=== PATIENT | male | born 2000 | race Caucasian/White ===

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

== ENCOUNTER 2021-11-29 12:28 | Inpatient (IN) | payer BC ==
[2021-11-29] MEDS ORDERED: DEXAMETHASONE SOD PHOSPHATE 10 MG/ML 1 ML VIAL IM STA (12:58)
[2021-11-29] MEDS ORDERED: IPRATROPIUM-ALBUTEROL 3 ML NEB INHALATION STA ×2 (12:58→15:32)
--- NOTE | 2021-11-29 13:01 | ED ---
General Adult HPI - General Chief complaint: Upper Respiratory Infection Stated complaint: cough, SOB Time Seen by Provider: 11/29/21 12:52 Source: patient, family (mom), RN notes reviewed, old records reviewed Mode of arrival: ambulatory Limitations: no limitations - History of Present Illness Initial comments: Patient presents with 2 months of chronic cough and wheezing. Denies any fevers, no chest pain, no nausea vomiting or diarrhea. States that he does smoke marijuana and vape daily. He denies any medical history. Mom states that he did have asthma as a child. -: month(s) (2) Severity scale (1-10): 0 Associated Symptoms: cough Treatments Prior to Arrival: none - Related Data Home Medications Medication Instructions Recorded Confirmed No Known Home Medications 07/08/20 11/29/21 Allergies Allergy/AdvReac Type Severity Reaction Status Date / Time No Known Allergies Allergy Verified 11/29/21 14:18 Review of Systems ROS Statement: Those systems with pertinent positive or pertinent negative responses have been documented in the HPI. ROS Other: All systems not noted in ROS Statement are negative. Past Medical History Past Medical History: No Reported History History of Any Multi-Drug Resistant Organisms: None Reported Past Surgical History: No Surgical Hx Reported Past Psychological History: Anxiety, Depression Smoking Status: Never smoker Past Alcohol Use History: None Reported Past Drug Use History: None Reported General Exam Limitations: no limitations General appearance: alert, in no apparent distress Head exam: Present: atraumatic, normocephalic, normal inspection Eye exam: Present: normal appearance. Absent: scleral icterus, conjunctival injection, periorbital swelling, periorbital tenderness ENT exam: Present: mucous membranes moist Neck exam: Present: normal inspection, full ROM. Absent: tenderness, meningismus, lymphadenopathy, thyromegaly Respiratory exam: Present: wheezes. Absent: respiratory distress, rales, rhonchi, stridor, chest wall tenderness, accessory muscle use, decreased breath sounds Cardiovascular Exam: Present: tachycardia Extremities exam: Present: normal capillary refill. Absent: tenderness, pedal edema, calf tenderness Neurological exam: Present: alert, oriented X3 Psychiatric exam: Present: normal affect, normal mood Skin exam: Present: warm, dry, normal color. Absent: cyanosis, diaphoretic, erythema, petechiae, pallor Course Vital Signs 11/29/21 11/29/21 11/29/21 12:40 13:07 13:11 Temperature 99.1 F Pulse Rate 125 H 110 H 113 H Respiratory 20 20 Rate Blood Pressure 167/89 O2 Sat by Pulse 93 L 93 L Oximetry 11/29/21 11/29/21 11/29/21 13:22 14:03 14:12 Temperature Pulse Rate 105 H 103 H 98 Respiratory 20 Rate Blood Pressure 140/89 O2 Sat by Pulse 93 L Oximetry 11/29/21 11/29/21 11/29/21 14:23 15:38 15:44 Temperature Pulse Rate 101 H 105 H 100 Respiratory 20 Rate Blood Pressure 141/93 O2 Sat by Pulse 92 L Oximetry 11/29/21 11/29/21 11/29/21 16:06 17:15 17:18 Temperature Pulse Rate 114 H 110 H Respiratory 20 Rate Blood Pressure 143/84 O2 Sat by Pulse 93 L 95 Oximetry - Reevaluation(s) Reevaluation #1: 11/29/21 16:14 Patient continues to have inspiratory and expiratory wheezes bilaterally satting 91-92% on room air after multiple treatments, magnesium and steroids. Case discussed with Dr. Huang, patient will be admitted Time: 16:14 EKG Findings - EKG Results: EKG: sinus rhythm EKG shows: tachycardia (Ventricular rate 101, WI interval 0.159, QRS 0.89, QTC 0.386) Medical Decision Making - Medical Decision Making Patient presents with increasing dyspnea over the past 2 months. Denies any fevers. No recent sick contacts. States that he does vape and smoke marijuana daily. Patient was given multiple breathing treatments, steroids and magnesium and remains hypoxic at 90-91% on room air, with inspiratory and expiratory wheezes. Coronavirus swab is negative. Chest x-ray shows no acute cardiopulmonary disease. Case was discussed with Dr. Huang, he will be admitted to the hospital with refractory bronchospasm and hypoxia. Consult to pulmonology. - Lab Data Result diagrams: 11/29/21 13:59 11/29/21 13:59 Lab Results 11/29/21 11/29/21 11/29/21 Range/Units 13:59 13:59 13:59 WBC 10.0 (4.0-11.0) k/uL RBC 5.72 (4.30-5.90) m/uL Hgb 17.1 (13.0-17.5) gm/dL Hct 50.0 (39.0-53.0) % MCV 87.3 (80.0-100.0) fL MCH 29.9 (25.0-35.0) pg MCHC 34.3 (31.0-37.0) g/dL RDW 13.0 (11.5-15.5) % Plt Count 299 (150-450) k/uL MPV 6.6 Neutrophils % 60 % Lymphocytes % 22 % Monocytes % 5 % Eosinophils % 10 % Basophils % 2 % Neutrophils # 6.0 (1.3-7.7) k/uL Lymphocytes # 2.2 (1.0-4.8) k/uL Monocytes # 0.5 (0-1.0) k/uL Eosinophils # 1.0 H (0-0.7) k/uL Basophils # 0.2 (0-0.2) k/uL D-Dimer 0.26 (<0.60) mg/L FEU Sodium 140 (137-145) mmol/L Potassium 3.7 (3.5-5.1) mmol/L Chloride 102 (98-107) mmol/L Carbon Dioxide 24 (22-30) mmol/L Anion Gap 14 mmol/L BUN 16 (9-20) mg/dL Creatinine 0.79 (0.66-1.25) mg/dL Est GFR (CKD-EPI)AfAm >90 (>60 ml/min/1.73 sqM) Est GFR (CKD-EPI)NonAf >90 (>60 ml/min/1.73 sqM) Glucose 75 (74-99) mg/dL Calcium 8.9 (8.4-10.2) mg/dL Magnesium 1.6 (1.6-2.3) mg/dL Total Bilirubin 0.5 (0.2-1.3) mg/dL AST 28 (17-59) U/L ALT 22 (4-49) U/L Alkaline Phosphatase 92 (38-126) U/L Total Protein 7.6 (6.3-8.2) g/dL Albumin 4.6 (3.5-5.0) g/dL Coronavirus (PCR) (Not Detectd) 11/29/21 Range/Units 16:31 WBC (4.0-11.0) k/uL RBC (4.30-5.90) m/uL Hgb (13.0-17.5) gm/dL Hct (39.0-53.0) % MCV (80.0-100.0) fL MCH (25.0-35.0) pg MCHC (31.0-37.0) g/dL RDW (11.5-15.5) % Plt Count (150-450) k/uL MPV Neutrophils % % Lymphocytes % % Monocytes % % Eosinophils % % Basophils % % Neutrophils # (1.3-7.7) k/uL Lymphocytes # (1.0-4.8) k/uL Monocytes # (0-1.0) k/uL Eosinophils # (0-0.7) k/uL Basophils # (0-0.2) k/uL D-Dimer (<0.60) mg/L FEU Sodium (137-145) mmol/L Potassium (3.5-5.1) mmol/L Chloride (98-107) mmol/L Carbon Dioxide (22-30) mmol/L Anion Gap mmol/L BUN (9-20) mg/dL Creatinine (0.66-1.25) mg/dL Est GFR (CKD-EPI)AfAm (>60 ml/min/1.73 sqM) Est GFR (CKD-EPI)NonAf (>60 ml/min/1.73 sqM) Glucose (74-99) mg/dL Calcium (8.4-10.2) mg/dL Magnesium (1.6-2.3) mg/dL Total Bilirubin (0.2-1.3) mg/dL AST (17-59) U/L ALT (4-49) U/L Alkaline Phosphatase (38-126) U/L Total Protein (6.3-8.2) g/dL Albumin (3.5-5.0) g/dL Coronavirus (PCR) Not Detected (Not Detectd) Disposition Clinical Impression: Hypoxia, Acute bronchospasm Disposition: ADMITTED IP TO THIS [facility] Time of Disposition: 16:16
[2021-11-29] MEDS ORDERED: ALBUTEROL NEBULIZED 2.5 MG/3 ML INHALATION STA ×2 (13:39→15:26)
[2021-11-29] MEDS ORDERED: MAGNESIUM SULFATE-D5W PMX 1 GM in DEXTROSE/WATER 1 100ML.BAG IVPB STA (13:40)
[2021-11-29] MEDS ORDERED: SODIUM CHLORIDE 0.9% 1,000 ML IV STA (13:40)
[2021-11-29 14:10] LABS: Basophils # (A) 0.2 k/uL (0-0.2); Basophils % (A) 2 %; Eosinophils % (A) 10 %; HGB 17.1 gm/dL (13.0-17.5); Lymphocytes # (A) 2.2 k/uL (1.0-4.8); Lymphocytes % (A) 22 %; MCH 29.9 pg (25.0-35.0); MCHC 34.3 g/dL (31.0-37.0); MCV 87.3 fL (80.0-100.0); Mean Platelet Volume 6.6; Monocytes # (A) 0.5 k/uL (0-1.0); Monocytes % (A) 5 %; Neutrophils % (A) 60 %; Platelet Count 299 k/uL (150-450); RBC 5.72 m/uL (4.30-5.90)
[2021-11-29 14:18] LABS: ALT 22 U/L (4-49); AST 28 U/L (17-59); African American GFR (CKD) >90 (>60 ml/min/1.73 sqM); Albumin 4.6 g/dL (3.5-5.0); Alkaline Phosphatase 92 U/L (38-126); Anion Gap 14 mmol/L; Blood Urea Nitrogen 16 mg/dL (9-20); Calcium 8.9 mg/dL (8.4-10.2); Carbon Dioxide 24 mmol/L (22-30); Chloride 102 mmol/L (98-107); Glucose 75 mg/dL (74-99); Magnesium 1.6 mg/dL (1.6-2.3); Non-African American GFR(CKD) >90 (>60 ml/min/1.73 sqM); Potassium 3.7 mmol/L (3.5-5.1); Sodium 140 mmol/L (137-145); Total Bilirubin 0.5 mg/dL (0.2-1.3); Total Protein 7.6 g/dL (6.3-8.2)
--- NOTE | 2021-11-29 14:46 | XR ---
EXAMINATION TYPE: XR chest 2V DATE OF EXAM: 11/29/2021 COMPARISON: NONE HISTORY: Cough and difficulty breathing TECHNIQUE: Frontal and lateral views of the chest are obtained. FINDINGS: There is no focal air space opacity, pleural effusion, or pneumothorax seen. The cardiac silhouette size is within normal limits. The osseous structures are intact. IMPRESSION: No acute cardiopulmonary process.
[2021-11-29] MEDS ORDERED: ALBUTEROL NEBULIZED 2.5 MG/3 ML INHALATION PRN (16:29)
[2021-11-29] MEDS ORDERED: NALOXONE 0.4 MG/ML 1 ML VIAL IV PRN (16:31)
[2021-11-29] MEDS ORDERED: IBUPROFEN 400 MG TAB PO PRN (16:31)
[2021-11-29] MEDS ORDERED: ACETAMINOPHEN TAB 325 MG TAB PO PRN (16:31)
--- NOTE | 2021-11-29 17:18 | P.HPIM ---
History of Present Illness H&P Date: 11/29/21 Patient is a 21-year-old male with PMH of childhood asthma presents the ED for shortness of breath and wheezing. Patient reports symptoms ongoing for the past 6 months. Initially, his complaints was a dry cough. Patient reports 2 months ago he was at work and inhaled some chemicals while cleaning. Since then, he has been experiencing cough productive of clear sputum along with wheezing. Today, he reported shortness of breath worsen usual. His O2 saturation is 91% at home. He does state nicotine and smoke marijuana. This prompted him to come to the ED. He denies any headache, lower extremity edema, nausea or vomiting, fever or chills, chest pain, palpitations, changes in urination or bowel habits. No changes in appetite or weight. He denies any dizziness, numbness/weakness as tingling of extremities. In the ED, he was noted to have an O2 saturation of 92% on room air while being tachycardic in the 110s. Vital signs were otherwise stable. CBC was unremarkable. D-dimer was negative. CMP was negative. Chest x-ray was negative. Patient is admitted for asthma exacerbation. Review of systems has been performed and is negative except above. General: [non toxic], [no distress], [appears at stated age] Derm: [warm], [dry] Head: [atraumatic], [normocephalic], [symmetric] Eyes: [EOMI], [no lid lag], [anicteric sclera] Mouth: [no lip lesion], [mucus membranes moist] Cardiovascular: [Tachycardic], [no murmur], [positive posterior tibial pulse bilateral], Lungs: [Expiratory wheezing bilateral], [no rhonchi, no rales] , [no accessory muscle use] Abdominal: [soft], [ nontender to palpation], [no guarding], [no appreciable organomegaly] Ext: [no gross muscle atrophy], [no edema], [no contractures] Neuro: [ CN II-XI grossly intact], [no focal neuro deficits] Psych: [Alert], [oriented], [appropriate affect] #Acute asthma exacerbation #History of a vaping #Marijuana use #Obesity Patient was started on DuoNeb scheduled and as needed for shortness of breath and wheezing. He will be started on Solu-Medrol. He'll be given supplemental O2 to maintain O2 saturation greater than 92%. He'll be placed on telemetry monitoring. Pulmonology will be consulted for further management of this patient. Patient has been encourage to quit vaping and smoking marijuana. Patient would benefit from a structured weight loss program. DVT prophylaxis: [SCDs] Discussed with: [Patient, ED physician, mother] Anticipated discharge: [1-2 days] Anticipated discharge place: [Home] A total of [30] minutes was spent on the care of this complex patient more than 50% of the time was spent in counseling and care coordination. Patient names his mother decision maker if he can't make decisions for himself. Patient would like to be full code. Past Medical History Past Medical History: No Reported History History of Any Multi-Drug Resistant Organisms: None Reported Past Surgical History: No Surgical Hx Reported Past Psychological History: Anxiety, Depression Smoking Status: Never smoker Past Alcohol Use History: None Reported Past Drug Use History: None Reported Medications and Allergies Home Medications Medication Instructions Recorded Confirmed Type No Known Home Medications 07/08/20 11/29/21 History Allergies Allergy/AdvReac Type Severity Reaction Status Date / Time No Known Allergies Allergy Verified 11/29/21 14:18 Physical Exam Vitals: Vital Signs Temp Pulse Resp BP Pulse Ox 11/29/21 17:15 110 H 20 143/84 93 L 11/29/21 16:06 114 H 11/29/21 15:44 100 11/29/21 15:38 105 H 20 141/93 92 L 11/29/21 14:23 101 H 11/29/21 14:12 98 11/29/21 14:03 103 H 20 140/89 93 L 11/29/21 13:22 105 H 11/29/21 13:11 113 H 11/29/21 13:07 110 H 20 93 L 11/29/21 12:40 99.1 F 125 H 20 167/89 93 L Intake and Output 11/29/21 11/29/21 11/29/21 06:59 14:59 22:59 Other: Weight 108.862 kg Results CBC & Chem 7: 11/29/21 13:59 11/29/21 13:59 Labs: Abnormal Lab Results - Last 24 Hours (Table) 11/29/21 Range/Units 13:59 Eosinophils # 1.0 H (0-0.7) k/uL
[2021-11-29] MEDS: methylPREDNISolone SOD SUCCI 125 MG/2 ML VIAL IV SCH (18:10)
[2021-11-29] MEDS: SODIUM CHLORIDE 0.9% 1,000 ML IV SCH (18:11)
[2021-11-29] MEDS: IPRATROPIUM-ALBUTEROL 3 ML NEB INHALATION SCH (21:29)
[2021-11-30] MEDS: IPRATROPIUM-ALBUTEROL 3 ML NEB INHALATION SCH ×7 (00:30→23:35)
[2021-11-30] MEDS: methylPREDNISolone SOD SUCCI 125 MG/2 ML VIAL IV SCH ×4 (01:36→16:51)
--- NOTE | 2021-11-30 10:01 | P.PN ---
Subjective Progress Note Date: 11/30/21 Hospital course: Patient is a 21-year-old male with PMH of childhood asthma presents the ED for shortness of breath and wheezing. Patient reports symptoms ongoing for the past 6 months. Initially, his complaints consisted of a dry cough. Patient reports 2 months ago he was at work and inhaled some chemicals while cleaning. Since then, he has been experiencing cough productive of clear sputum along with wheezing. Today, he reported shortness of breath worsen usual. His O2 satu ration is 91% at home. He does state nicotine and smoke marijuana. This prompted him to come to the ED. He denies any headache, lower extremity edema, nausea or vomiting, fever or chills, chest pain, palpitations, changes in urination or bowel habits. No changes in appetite or weight. He denies any dizziness, numbness/weakness as tingling of extremities. In the ED, pt was noted to have an O2 saturation of 92% on room air while being tachycardic in the 110s. Vital signs were otherwise stable. CBC was unremarkable. D-dimer was negative. CMP was negative. Chest x-ray was negative. Patient was admitted under our services for asthma exacerbation with consultation to pulmonology. Physical exam: Patient seen and fully evaluated at bedside this morning. At rest patient appears to be doing better, but continues to have significant bronchospasms with expiratory wheezes throughout all lung khan. He is currently 90-91% on 2 L O2 via nasal cannula. Had long discussion with patient about Vaping and that he needs to stop all use including marijuana and nicotine. Patient verbalized understanding. Will arrange for home nebulizer. Vital signs reviewed and stable. General: Nontoxic, no distress and appears stated age. Derm: Skin warm and dry, normal coloration for ethnicity. Head: Atraumatic, normocephalic and symmetric. Eyes: EOMs intact, no lid lag, and anicteric sclera Mouth: no lip lesions, mucus membranes moist Cardiovascular: regular rate and rhythm with normal S1S2, no murmur, positive posterior tibial pulses bilaterally, and cap refill < 2 seconds. Lungs: Respirations even, regular, and unlabored on 2L O2 via NC. Lungs tight with expiratory wheezes in all khan. No rhonchi or rales. Abdominal: soft, nontender to palpation, no guarding, no appreciable organomegaly Ext: ROM intact. No gross muscle atrophy, no edema, no contractures Neuro: Speech clear, face symmetrical and CN II-XII grossly intact with no noted focal neuro deficits Psych: Alert and oriented to person, place, time, and situation. Appropriate and pleasant affect. Assessment and Plan of Care: Acute asthma exacerbation Vaping usage Marijuana usage -Consult to Pulmonology -Oxygenation to be administered and titrated as needed to maintain SPO2 equal to or greater than 92% -Telemetry monitoring. -Monitor Pulse-oximetry -Duonebs scheduled and as needed for SOB and/or wheezing -Incentive Spirometry -Steroids: Solu-Medrol -Patient has been educated on the importance to quit vaping and smoking marijuana. CODE STATUS: Full Code DVT prophylaxis: Encourage ambulation Discussed with: Patient, RN and patient's father at bedside Anticipated discharge date: likely tomorrow Anticipated discharge place: Home A total of 37 minutes was spent on the care of this complex patient more than 50% of the time was spent in counseling and care coordination. Objective - Vital Signs Vital signs: Vital Signs Temp 97.8 F 11/30/21 08:00 Pulse 110 H 11/30/21 08:42 Resp 17 11/30/21 08:00 BP 138/85 11/30/21 08:00 Pulse Ox 91 L 11/30/21 08:29 FiO2 Intake & Output 11/29/21 11/30/21 11/30/21 18:59 06:59 18:59 Intake Total 1225 Balance 1225 Weight 108.862 kg 108.862 kg Intake: Intake, IV Titration 825 Amount Sodium Chloride 0.9% 1, 825 000 ml @ 75 mls/hr IV . [id number] ANDREINA Rx#:[id number] Oral 400 Other: Voiding Method Toilet # Voids 2 - Labs CBC & Chem 7: 11/29/21 13:59 11/29/21 13:59 Labs: Abnormal Lab Results - Last 24 Hours (Table) 11/29/21 Range/Units 13:59 Eosinophils # 1.0 H (0-0.7) k/uL
[2021-11-30] MEDS: SODIUM CHLORIDE 0.9% 1,000 ML IV SCH ×2 (12:10→20:07)
--- NOTE | 2021-11-30 13:13 | CT ---
EXAMINATION TYPE: CT angio chest CT DLP: 556.6 mGycm, Automated exposure control for dose reduction was used. DATE OF EXAM: 11/30/2021 12:07 PM COMPARISON: Chest radiograph 11/29/2021. CLINICAL INDICATION:Male, 21 years old with history of hypoxia; TECHNIQUE/CONTRAST: CTA scan of the thorax is performed with IV Contrast, patient injected with 80cc mL of Isovue 370, pu lmonary embolism protocol. Repeat exam with 100 cc of Isovue-370 administered due to poor contrast jace mell timing. MIP images are created and reviewed. FINDINGS: Pulmonary Artery: There is no evidence for a filling defect within the pulmonary vasculature to sugge st acute pulmonary embolism. The pulmonary artery is of normal size. Lungs/Pleura: No pneumothorax or pleural effusion. Patchy groundglass opacities within the right uppe r lobe, left upper lobe, and superior segment of the right lower lobe. Airway: Large airways are patent. Heart: Heart is within normal limits for size. No pericardial effusion. Vasculature: No evidence of aortic aneurysm. Mediastinum: No gross evidence of adenopathy. Musculoskeletal: No acute osseous abnormalities Soft Tissues: Mild bilateral gynecomastia. No axillary adenopathy. Lower neck: No significant findings. Upper Abdomen: No significant findings. IMPRESSION: 1. No evidence of pulmonary embolism. 2. Patchy groundglass opacities within the right upper lobe, left upper lobe and right lower lobe sug gestive of atypical pulmonary infection.
[2021-11-30 14:31] VITALS: BMI 34.4
--- NOTE | 2021-11-30 14:31 | P.CNPUL ---
History of Present Illness Consult date: 11/30/21 Reason for consult: dyspnea History of present illness: 21-year-old male patient, history of mild intermittent bronchial asthma, not using any form of maintenance his for medications and inhalers, coming into the hospital because of worsening shortness of breath chest that is so wheezing typically of an acute asthma exacerbation. The patient reports that approximately a month ago, was exposed to cleaning material/bleach while doing some cleaning work in the kitchen. 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 Following that, his breathing was not adequate and progressively his condition got worse. Note that he is a daily marijuana smoker and the patient also states. The patient presented emergency department having in creased chest tightness and wheezing and the patient was also hypoxic. His pulse ox was as low as 90-91% at home. No pleurisy. No hemoptysis. No previous history of DVT or pulmonary embolism. No recurrent pneumonias. No recurrent bronchitis. No use of systemic steroids on outpatient basis. The patient has been vaccinated for COVID 19 and the colon 19 testing came back negative by PCR. He has a strong family history for asthma including his mother and other sibling. The patient is currently on albuterol nebulized treatments of DuoNeb nebulized treatments around the clock and the patient is also on IV Solu-Medrol. Chest x-ray showed no acute abnormalities. CBC was remarkable and the patient had a low d-dimer. No history of any environmental ALLERGIES. No history of heartburn. No nasal polyposis. No aspirin sensitivity. Review of Systems Constitutional: Denies chills, Denies fever Eyes: denies as per HPI, denies blurred vision, denies bulging eye, denies decreased vision, denies diplopia, denies discharge, denies dry eye, denies irritation, denies itching, denies pain, denies photophobia, denies loss of p eripheral vision, denies loss of vision, denies tunnel vision/blind spots Ears: deny: decreased hearing, ear discharge, earache, tinnitus Ears, nose, mouth and throat: Reports as per HPI Breasts: absent: as per HPI, gynecomastia Cardiovascular: Reports dyspnea on exertion Respiratory: Reports cough, Reports dyspnea, Reports wheezing Gastrointestinal: Reports as per HPI Genitourinary: Reports as per HPI Musculoskeletal: Reports as per HPI Musculoskeletal: absent: ankle pain, ankle stiffness, ankle swelling Integumentary: Reports as per HPI Neurological: Reports as per HPI Psychiatric: Reports as per HPI Endocrine: Reports as per HPI Hematologic/Lymphatic: Reports as per HPI Allergic/Immunologic: Reports as per HPI Past Medical History Past Medical History: No Reported History Additional Past Medical History / Comment(s): asthma as kid History of Any Multi-Drug Resistant Organisms: None Reported Past Surgical History: No Surgical Hx Reported Past Psychological History: Anxiety, Depression Smoking Status: Current every day smoker Past Alcohol Use History: None Reported Past Drug Use History: None Reported Additional Drug Use History / Comment(s): Pt. reports vaping and useing marijuana everyday. Medications and Allergies Home Medications Medication Instructions Recorded Confirmed Type No Known Home Medications 07/08/20 11/29/21 History Allergies Allergy/AdvReac Type Severity Reaction Status Date / Time No Known Allergies Allergy Verified 11/29/21 14:18 Physical Exam Vitals: Vital Signs Temp Pulse Pulse Resp BP BP Pulse Ox 11/30/21 13:40 98.7 F 125 H 18 136/67 93 L 11/30/21 12:39 120 H 11/30/21 12:25 125 H 11/30/21 08:42 110 H 11/30/21 08:29 111 H 91 L 11/30/21 08:00 97.8 F 111 H 17 138/85 93 L 11/30/21 01:37 97.9 F 105 H 16 137/74 90 L 11/29/21 20:18 98.5 F 116 H 17 176/94 95 11/29/21 20:15 18 11/29/21 19:42 98.9 F 104 H 20 147/87 95 11/29/21 17:18 95 11/29/21 17:15 110 H 20 143/84 93 L 11/29/21 16:06 114 H 11/29/21 15:44 100 11/29/21 15:38 105 H 20 141/93 92 L Intake and Output 11/29/21 11/30/21 11/30/21 22:59 06:59 14:59 Intake Total 1225 Balance 1225 Intake: Intake, IV Titration 825 Amount Sodium Chloride 0.9% 1, 825 000 ml @ 75 mls/hr IV . [id number] ANDREINA Rx#:[id number] Oral 400 Other: Voiding Method Toilet # Voids 2 Weight 108.862 kg General: Nontoxic, no distress and appears stated age. The pulse ox on room air is range between 88-91% and the patient was placed on 2 L O2 nasal cannula. Derm: Skin warm and dry, normal coloration for ethnicity. Head: Atraumatic, normocephalic and symmetric. Eyes: EOMs intact, no lid lag, and anicteric sclera Mouth: no lip lesions, mucus membranes moist Cardiovascular: regular rate and rhythm with normal S1S2, no murmur, positive posterior tibial pulses bilaterally, and cap refill < 2 seconds. Lungs: Diffuse expiratory wheezes without the lung his bilaterally and the patient has prolongation of his exhalation phase of breathing. Abdominal: soft, nontender to palpation, no guarding, no appreciable organomegaly Ext: ROM intact. No gross muscle atrophy, no edema, no contractures Neuro: Speech clear, face symmetrical and CN II-XII grossly intact with no noted focal neuro deficits Psych: Alert and oriented to person, place, time, and situation. Appropriate and pleasant affect. Results - Laboratory Findings CBC and BMP: 11/29/21 13:59 11/29/21 13:59 PT/INR, D-dimer D-Dimer 0.26 mg/L FEU (<0.60) 11/29/21 13:59 Abnormal lab findings: Abnormal Labs 11/29/21 13:59 Eosinophils # 1.0 H - Diagnostic Findings Chest x-ray: image reviewed Assessment and Plan Plan: Acute asthma exacerbation with secondary shortness of breath. Acute hypoxic respiratory failure due to severe asthma exacerbation. Pneumonia and/or pulmonary embolism is felt to be less likely based on the clinical presentation chest x-ray picture. History of monitor the bronchial asthma not using any follow maintenance respiratory medications and outpatient basis Vaping and marijuana use Sinus tachycardia secondary to above Shortness of breath secondary to above Plan Continue current treatment with DuoNeb nebulized treatments around the clock IV Solu Medrol 60 mg every 6 hours I will start The patient Symbicort 2 puffs twice a day Obtain a CAT scan of the chest with contrast looking for any abnormal findings contributing to this patient's hypoxemia Keep the patient on 2 L about 2 by nasal cannula We'll continue to follow make further recommendations based on his progress. Smoking cessation counseling was done. No need for antibiotic coverage ar this point in time. We'll follow
[2021-11-30] MEDS: AZITHROMYCIN 500 MG TAB PO SCH (16:51)
[2021-11-30] MEDS: SYMBICORT 160-4.5 MCG INHALER INHALATION SCH (20:01)
[2021-12-01] MEDS: methylPREDNISolone SOD SUCCI 125 MG/2 ML VIAL IV SCH ×3 (00:50→11:33)
[2021-12-01] MEDS: IPRATROPIUM-ALBUTEROL 3 ML NEB INHALATION SCH ×3 (04:27→11:10)
[2021-12-01] MEDS: SYMBICORT 160-4.5 MCG INHALER INHALATION SCH (07:29)
[2021-12-01] MEDS: SODIUM CHLORIDE 0.9% 1,000 ML IV SCH (07:44)
--- NOTE | 2021-12-01 13:15 | P.PN ---
Subjective Progress Note Date: 12/01/21 On today's evaluation of 12/01/2021, the patient is feeling better. Oxidation is improved compared to yesterday the patient is currently on room air oxygen with a pulse ox of around 90-94%. No significant desaturation. The patient continues to have some sinus tachycardia especially with mobility. The patient remains on IV Solu Medrol. The patient was started on Symbicort yesterday and he is also on DuoNeb nebulized treatment every 4 hours. The patient was also given a CT angiogram that showed no evidence of any pulmonary embolism. There was some areas of vague groundglass pulmonary infiltrates and left upper lobe. This is nonspecific findings could be related to Vapin or various other expo sures. I decided to give this patient some antibiotics for empiric coverage. The patient is currently on Zithromax. No pleurisy. No hemoptysis. Remainder normal saline at rate of 75 mL an hour. Objective - Vital Signs Vital signs: Vital Signs Temp 97.8 F 12/01/21 08:35 Pulse 108 H 12/01/21 11:27 Resp 17 12/01/21 08:35 BP 130/71 12/01/21 08:35 Pulse Ox 92 L 12/01/21 10:18 FiO2 Intake & Output 11/30/21 12/01/21 12/01/21 18:59 06:59 18:59 Weight 108.862 kg Other: Voiding Method Toilet Toilet # Voids 3 1 - Exam General: Nontoxic, no distress and appears stated age. The pulse ox on room air is an order of 93% Derm: Skin warm and dry, normal coloration for ethnicity. Head: Atraumatic, normocephalic and symmetric. Eyes: EOMs intact, no lid lag, and anicteric sclera Mouth: no lip lesions, mucus membranes moist Cardiovascular: regular rate and rhythm with normal S1S2, no murmur, positive posterior tibial pulses bilaterally, and cap refill < 2 seconds. The patient does have some sinus tachycardia. Lungs: Diminished breath sounds are markedly improvement in the exhalation wheezing. Examination of the extremities revealed easily palpable radial, femoral and pedal pulses. There was no cyanosis, clubbing or edema. Examination of the skin revealed no evidence of significant rashes, suspicious appearing nevi or other concerning lesions. Neuro: Speech clear, face symmetrical and CN II-XII grossly intact with no noted focal neuro deficits Psych: Alert and oriented to person, place, time, and situation. Appropriate and pleasant affect. - Labs CBC & Chem 7: 11/29/21 13:59 11/29/21 13:59 Assessment and Plan Plan: Acute asthma exacerbation with secondary shortness of breath, clinically improved and the patient is currently feeling better Acute hypoxic respiratory failure due to severe asthma exacerbation. Pneumonia and/or pulmonary embolism is felt to be less likely based on the clinical presentation chest x-ray picture. CT of the chest was noted and the patient was given empiric antibiotic coverage with Zithromax. History of monitor the bronchial asthma not using any follow maintenance respiratory medications and outpatient basis Vaping and marijuana use Sinus tachycardia secondary to above Shortness of breath secondary to above Plan Clinically improving Patient, discharged home on a prednisone burst taper starting with 40 mg of the Yvan by 10 mg every 4 days Completed course of Zithromax for the next 7 days Use DuoNeb nebulized treatment [id number] as needed every 4 hours Continue Symbicort maintenance 160/4.5, who puffs twice a day Monitor the cardiac rate and rhythm May be able to discharge home today to be followed up on outpatient basis Smoking cessation counseling
[2021-12-01 14:24] VITALS: BP 143/71; PULSE 115; RESP 18; TEMP 97.9
--- NOTE | 2021-12-01 14:33 | P.DS ---
Providers Date of admission: 11/29/21 17:35 Expected date of discharge: 12/01/21 Attending physician: Cindi Ashton DO Consults: 11/29/21 16:31 Consult Physician Routine Consulting Provider: Dipti Hearn Consult Reason/Comments: Refractory bronchospasm with hypoxia Do you want consulting provider notified?: Yes, Notify in am Primary care physician: [facility] Course: Discharge Diagnosis: Acute asthma exacerbation. EVALI e-cigarette or vaping-associated lung injury. Patient has been educated on the importance to quit vaping, smoking marijuana, and use of any inhalants. Vaping use. Patient has been educated on the importance to quit vaping, smoking marijuana, and use of any inhalants. Marijuana usage. Patient has been educated on the importance to quit vaping, smoking marijuana, and use of any inhalants. Sinus tachycardia, secondary to asthma exacerbation, use of scheduled and as needed nebulizer treatments and steroids. Hospital Course: Patient is a 21-year-old male with PMH of childhood asthma presents the ED for shortness of breath and wheezing. Patient reports symptoms ongoing for the past 6 months. Initially, his complaints consisted of a dry cough. Patient reports 2 months ago he was at work and inhaled some chemicals while cleaning. Since then, he has been experiencing cough productive of clear sputum along with wheezing. Today, he reported shortness of breath worsen usual. His O2 saturation is 91% at home. He does state nicotine and smoke marijuana. This prompted him to come to the ED. He denies any headache, lower extremity edema, nausea or vomiting, fever or chills, chest pain, palpitations, changes in urination or bowel habits. No changes in appetite or weight. He denies any dizziness, numbness/weakness as tingling of extremities. In the ED, pt was noted to have an O2 saturation of 92% on room air while being tachycardic in the 110s. Vital signs were otherwise stable. CBC was unremarkable. D-dimer was negative. CMP was negative. Chest x-ray was negative. Covid PCR negative Patient was admitted under our services for asthma exacerbation with consultation to pulmonology. He was started on scheduled and as needed nebulizer treatments as well as steroids. CTA of chest was completed and negative for pulmonary emboli revealing patchy groundglass opacities within the right upper lobe, left upper lobe, and right lower lobe unable to rule out atypical pulmonary infection. Patient started on azithromycin empirically as he shows no signs of infection. He has been evaluated by pulmonary. Patient's overall condition improving over the past 48 hours and has significant improvement in airflow. Patient is medically stable for discharge at this time. He has been educated on the importance to quit vaping, smoking marijuana, and use of any inhalants. Patient being discharged home on an azithromycin to complete antibiotic course of 7 days, prednisone taper, albuterol nebulizer and nebulizer machine, Symbicort inhaler and Ventolin inhaler. Patient instructed he will need to follow up with PCP in 1-2 days and with firewood cutter in 1 week. Physical exam: Vital signs reviewed and stable. General: Nontoxic, no distress and appears stated age. Derm: Skin warm and dry, normal coloration for ethnicity. Head: Atraumatic, normocephalic and symmetric. Eyes: EOMs intact, no lid lag, and anicteric sclera Mouth: no lip lesions, mucus membranes moist Cardiovascular: regular rate and rhythm with normal S1S2, no murmur, positive posterior tibial pulses bilaterally, and cap refill < 2 seconds. Lungs: Respirations even, regular, and unlabored on room air. Lungs with improved air flow and soft expiratory wheezes. No rhonchi or rales. Abdominal: soft, nontender to palpation, no guarding, no appreciable organomegaly Ext: ROM intact. No gross muscle atrophy, no edema, no contractures Neuro: Speech clear, face symmetrical and CN II-XII grossly intact with no noted focal neuro deficits Psych: Alert and oriented to person, place, time, and situation. Appropriate and pleasant affect. A total of 35 minutes of time were spent preparing this complex discharge summary. Pt was discharged on 12/01/21 at 1:32 PM. Patient Condition at Discharge: Stable Plan - Discharge Summary Discharge Rx Participant: Yes New Discharge Prescriptions: New Albuterol Inhaler [Ventolin Hfa Inhaler] 2 puff INHALATION QID PRN 30 Days #8 gm PRN Reason: Shortness Of Breath predniSONE See Taper PO DIRECTED 16 Days #40 tab Budesonide-Formot 160-4.5 Mcg [Symbicort 160-4.5 Mcg Inhaler] 2 puff INHALATION RT-BID 30 Days #1 each Albuterol Nebulized [Ventolin Nebulized] 2.5 mg INHALATION Q6H 30 Days #180 ml Azithromycin [Zithromax] 500 mg PO DAILY@1500 6 Days #6 tab Discharge Medication List Albuterol Inhaler [Ventolin Hfa Inhaler] 2 puff INHALATION QID PRN 30 Days #8 gm 12/01/21 [Rx] Albuterol Nebulized [Ventolin Nebulized] 2.5 mg INHALATION Q6H 30 Days #180 ml 12/01/21 [Rx] Azithromycin [Zithromax] 500 mg PO DAILY@1500 6 Days #6 tab 12/01/21 [Rx] Budesonide-Formot 160-4.5 Mcg [Symbicort 160-4.5 Mcg Inhaler] 2 puff INHALATION RT-BID 30 Days #1 each 12/01/21 [Rx] predniSONE See Taper PO DIRECTED 16 Days #40 tab 12/01/21 [Rx] Follow up Appointment(s)/Referral(s): Guille Mcdonald MD [Primary Care Provider] - 1-2 days Dipti Hearn MD [STAFF PHYSICIAN] - 1 Week Patient Instructions/Handouts: Asthma (DC), Moderate and Severe Persistent Asthma (DC), Bronchospasm (GEN), EVALI (E-cigarette or Vaping-Associated Lung Injury) (DC) Activity/Diet/Wound Care/Special Instructions: Activity: As tolerated. Take breaks as needed. You will need some time to rebuild your endurance. Diet: Regular diet Special Instructions: Take all of your medications as directed and remember to keep all of your doctor's appointments and follow-up as needed. As discussed must stop use of all inhalants. Strongly advise cessation vaping. You will need to continue as we discussed scheduled nebulizer treatments every 6 hours for the next week and every 2 hours as needed for uncontrolled shortness of breath and/or wheezing. Then may use only as needed for shortness of breath and wheezing. Thank you for allowing us to participate in your care, it was truly a pleasure having you for our patient!!! Discharge Disposition: HOME SELF-CARE
[2021-12-01] MEDS: AZITHROMYCIN 500 MG TAB PO SCH (14:36)
== END 2021-12-01 14:57 | disposition home or self-care (01) | DRG 202 ==
LOC: EC 12:28 → 4SSUR 17:35
PROVIDERS: ADMIT Internal Medicine; ATTEND Internal Medicine
PROC: 3E0F7SF Introduction of Other Gas into Respiratory Tract, Via Natural or Artificial Opening (ICD-10-PCS; principal; 2021-11-29)
DX: J45.22 Mild intermittent asthma with status asthmaticus (principal); J96.01 Acute respiratory failure with hypoxia; Z20.822 Contact with and (suspected) exposure to COVID-19; E66.9 Obesity, unspecified; F17.290 Nicotine dependence, other tobacco product, uncomplicated; F32.A Depression, unspecified; F41.9 Anxiety disorder, unspecified; Z68.34 Body mass index [BMI] 34.0-34.9, adult; Z87.09 Personal history of other diseases of the respiratory system; U07.0 Vaping-related disorder; Z71.6 Tobacco abuse counseling; R00.0 Tachycardia, unspecified; Z82.5 Family history of asthma and other chronic lower respiratory diseases
CPT/HCPCS: 36415; 71046; 71275; 80053; 83735; 85025; 85379; 87635; 93005; 94640; 96361; 96365; 96372; 96375; 99285

== ENCOUNTER 2023-05-20 10:03 | Observation (INO) | payer BC ==
--- NOTE | 2023-05-20 10:23 | ED ---
General Adult HPI - General Stated complaint: SIEZURE Time Seen by Provider: 05/20/23 10:03 Source: patient, RN notes reviewed, old records reviewed - History of Present Illness Initial comments: This is a 22-year-old male with a past medical history of seizures. Patient had 3 seizures this morning. According to EMS family states that he sometimes has seizures when he stays out late and drinks but patient denies any drinking. Patient was combative and postictal according to EMS. Patient will need to get 5 mg of Versed IM to be able to be brought in. Patient has no complaints currently. Patient denies any drug use or drinking other than marijuana. Patient denies being sick recently patient is no cough fever chills or congestion. Patient has no chest pain palpitations or difficulty breathing. Patient has no abdominal pain patient has no nausea vomiting diarrhea - Related Data Home Medications Medication Instructions Recorded Confirmed Albuterol Inhaler [Ventolin Hfa 2 puff INHALATION RT-Q6H PRN 05/20/23 05/20/23 Inhaler] Budesonide/Glycopyr/Formoterol 2 puff INHALATION RT-BID 05/20/23 05/20/23 [Breztri Aerosphere Inhaler] Venlafaxine HCl [Effexor XR] 150 mg PO DAILY 05/20/23 05/20/23 Allergies Allergy/AdvReac Type Severity Reaction Status Date / Time No Known Allergies Allergy Verified 05/20/23 10:26 Review of Systems ROS Statement: Those systems with pertinent positive or pertinent negative responses have been documented in the HPI. ROS Other: All systems not noted in ROS Statement are negative. Past Medical History Past Medical History: No Reported History Additional Past Medical History / Comment(s): asthma as kid History of Any Multi-Drug Resistant Organisms: None Reported Past Surgical History: No Surgical Hx Reported Past Psychological History: Anxiety, Depression Smoking Status: Current every day smoker Past Alcohol Use History: None Reported Past Drug Use History: None Reported Additional Drug Use History / Comment(s): Pt. reports vaping and useing marijuana everyday. General Exam - General Exam Comments Initial Comments: GENERAL: Patient is well-developed and well-nourished. Patient is nontoxic and well- hydrated and is in mild distress. ENT: Neck is soft and supple. No significant lymphadenopathy is noted. Oropharynx is clear. Moist mucous membranes. Neck has full range of motion without eliciting any pain. EYES: The sclera were anicteric and conjunctiva were pink and moist. Extraocular movements were intact and pupils were equal round and reactive to light. Eyelids were unremarkable. PULMONARY: Unlabored respirations. Good breath sounds bilaterally. No audible rales rhonchi or wheezing was noted. CARDIOVASCULAR: There is a regular rate and rhythm without any murmurs gallops or rubs. ABDOMEN: Soft and nontender with normal bowel sounds. SKIN: Skin is clear with no lesions or rashes and otherwise unremarkable. NEUROLOGIC: Patient is alert and oriented x3. Cranial nerves II through XII are grossly intact. Motor and sensory are also intact. Normal speech, volume and content. Symmetrical smile. MUSCULOSKELETAL: Normal extremities with adequate strength and full range of motion. LYMPHATICS: No significant lymphadenopathy is noted PSYCHIATRIC: Normal psychiatric evaluation. Course Vital Signs 05/20/23 05/20/23 10:18 11:26 Temperature 98.4 F Pulse Rate 110 H 105 H Respiratory 18 18 Rate Blood Pressure 136/81 123/98 O2 Sat by Pulse 94 L 96 Oximetry Medical Decision Making - Medical Decision Making EKG shows a sinus tachycardia at 109 bpm PA interval 156 QRS is 90 QT interval 331 QTc is 390 5 repeat EKG shows no ST segment ovation or depression. Was pt. sent in by a medical professional or institution (, PA, REMEDIATION PROJECT ENGINEER, urgent care, hospital, or detention...) When possible be specific @ -No Did you speak to anyone other than the patient for history (EMS, parent, family, police, friend...)? What history was obtained from this source @ -EMS and family gave most of the history Did you review nursing and triage notes (agree or disagree)? Why? @ -I reviewed and agree with nursing and triage notes Were old charts reviewed (outside hosp., previous admission, EMS record, old EKG, old radiological studies, urgent care reports/EKG's, detention records)? Report findings @ -No old charts were reviewed Differential Diagnosis (chest pain, altered mental status, abdominal pain women, abdominal pain men, vaginal bleeding, weakness, fever, dyspnea, syncope, headache, dizziness, GI bleed, back pain, seizure, CVA, palpatations, mental he alth, musculoskeletal)? @ -MDM differential seizures EKG interpreted by me (3pts min.). @ -As above X-rays interpreted by me (1pt min.). @ -None done CT interpreted by me (1pt min.). @ -None done U/S interpreted by me (1pt. min.). @ -None done What testing was considered but not performed or refused? (CT, X-rays, U/S, labs)? Why? @ -None What meds were considered but not given or refused? Why? @ -None Did you discuss the management of the patient with other professionals (professionals i.e. DrRuthann, PA, REMEDIATION PROJECT ENGINEER, lab, RT, psych nurse, social media coordinator, pharmacy general manager, teacher, chief security officer, showcase maker)? Give summary @ -I spoke with Dr. Maldonado and she agreed to admit the patient admit the patient wrote admitting orders Was smoking cessation discussed for >3mins.? @ -No Was critical care preformed (if so, how long)? @ -No Were there social determinants of health that impacted care today? How? (Homelessness, low income, unemployed, alcoholism, drug addiction, transportation, low edu. Level, literacy, decrease access to med. care, long term, rehab)? @ -No Was there de-escalation of care discussed even if they declined (Discuss DNR or withdrawal of care, Hospice)? DNR status @ -No What co-morbidities impacted this encounter? (DM, HTN, Smoking, COPD, CAD, Cancer, CVA, ARF, Chemo, Hep., AIDS, mental health diagnosis, sleep apnea, morbid obesity)? @ -None Was patient admitted / discharged? Hospital course, mention meds given and route, prescriptions, significant lab abnormalities, going to OR and other pertinent info. @ -Patient had no further seizures in the emergency department. I spoke with Dr. Maldonado and admitted the patient Undiagnosed new problem with uncertain prognosis? @ -No Drug Therapy requiring intensive monitoring for toxicity (Heparin, Nitro, Insulin, Cardizem)? @ -No Were any procedures done? @ -No Diagnosis/symptom? @ -Generalized seizure Acute, or Chronic, or Acute on Chronic? @ -Acute Uncomplicated (without systemic symptoms) or Complicated (systemic symptoms)? @ -Complicated Side effects of treatment? @ -No Exacerbation, Progression, or Severe Exacerbation? @ -No Poses a threat to life or bodily function? How? (Chest pain, [place], [place], pneumonia, PE, COPD, DKA, ARF, appy, cholecystitis, CVA, Diverticulitis, Homicidal, Suicidal, threat to staff... and all critical care pts) @ -No - Lab Data Result diagrams: 05/20/23 10:16 05/20/23 10:16 Lab Results 05/20/23 05/20/23 05/20/23 Range/Units 10:16 10:16 10:16 WBC 13.1 H (3.8-10.6) k/uL RBC 5.83 (4.30-5.90) m/uL Hgb 18.1 H (13.0-17.5) gm/dL Hct 51.1 (39.0-53.0) % MCV 87.8 (80.0-100.0) fL MCH 31.1 (25.0-35.0) pg MCHC 35.4 (31.0-37.0) g/dL RDW 12.8 (11.5-15.5) % Plt Count 330 (150-450) k/uL MPV 7.2 Neutrophils % 87 % Lymphocytes % 8 % Monocytes % 2 % Eosinophils % 2 % Basophils % 1 % Neutrophils # 11.4 H (1.3-7.7) k/uL Lymphocytes # 1.0 (1.0-4.8) k/uL Monocytes # 0.3 (0-1.0) k/uL Eosinophils # 0.3 (0-0.7) k/uL Basophils # 0.1 (0-0.2) k/uL Sodium 138 (137-145) mmol/L Potassium 4.6 (3.5-5.1) mmol/L Chloride 106 (98-107) mmol/L Carbon Dioxide 16 L (22-30) mmol/L Anion Gap 16 mmol/L BUN 13 (9-20) mg/dL Creatinine 0.83 (0.66-1.25) mg/dL Est GFR (CKD-EPI)AfAm >90 (>60 ml/min/1.73 sqM) Est GFR (CKD-EPI)NonAf >90 (>60 ml/min/1.73 sqM) Glucose 183 H (74-99) mg/dL Calcium 9.2 (8.4-10.2) mg/dL Magnesium 2.1 (1.6-2.3) mg/dL Total Bilirubin 0.5 (0.2-1.3) mg/dL AST 39 (17-59) U/L ALT 30 (4-49) U/L Alkaline Phosphatase 101 (38-126) U/L Total Protein 7.9 (6.3-8.2) g/dL Albumin 4.9 (3.5-5.0) g/dL Urine Opiates Screen Not Detected (NotDetected) Ur Oxycodone Screen Not Detected (NotDetected) Urine Methadone Screen Not Detected (NotDetected) Ur Barbiturates Screen Not Detected (NotDetected) U Tricyclic Antidepress Not Detected (NotDetected) Ur Phencyclidine Scrn Not Detected (NotDetected) Ur Amphetamines Screen Not Detected (NotDetected) U Methamphetamines Scrn Not Detected (NotDetected) U Benzodiazepines Scrn Not Detected (NotDetected) Urine Cocaine Screen Not Detected (NotDetected) U Marijuana (THC) Screen Detected H (NotDetected) Serum Alcohol <10 mg/dL Influenza Type A (PCR) (Not Detectd) Influenza Type B (PCR) (Not Detectd) RSV (PCR) (Not Detectd) SARS-CoV-2 (PCR) (Not Detectd) 05/20/23 Range/Units 10:16 WBC (3.8-10.6) k/uL RBC (4.30-5.90) m/uL Hgb (13.0-17.5) gm/dL Hct (39.0-53.0) % MCV (80.0-100.0) fL MCH (25.0-35.0) pg MCHC (31.0-37.0) g/dL RDW (11.5-15.5) % Plt Count (150-450) k/uL MPV Neutrophils % % Lymphocytes % % Monocytes % % Eosinophils % % Basophils % % Neutrophils # (1.3-7.7) k/uL Lymphocytes # (1.0-4.8) k/uL Monocytes # (0-1.0) k/uL Eosinophils # (0-0.7) k/uL Basophils # (0-0.2) k/uL Sodium (137-145) mmol/L Potassium (3.5-5.1) mmol/L Chloride (98-107) mmol/L Carbon Dioxide (22-30) mmol/L Anion Gap mmol/L BUN (9-20) mg/dL Creatinine (0.66-1.25) mg/dL Est GFR (CKD-EPI)AfAm (>60 ml/min/1.73 sqM) Est GFR (CKD-EPI)NonAf (>60 ml/min/1.73 sqM) Glucose (74-99) mg/dL Calcium (8.4-10.2) mg/dL Magnesium (1.6-2.3) mg/dL Total Bilirubin (0.2-1.3) mg/dL AST (17-59) U/L ALT (4-49) U/L Alkaline Phosphatase (38-126) U/L Total Protein (6.3-8.2) g/dL Albumin (3.5-5.0) g/dL Urine Opiates Screen (NotDetected) Ur Oxycodone Screen (NotDetected) Urine Methadone Screen (NotDetected) Ur Barbiturates Screen (NotDetected) U Tricyclic Antidepress (NotDetected) Ur Phencyclidine Scrn (NotDetected) Ur Amphetamines Screen (NotDetected) U Methamphetamines Scrn (NotDetected) U Benzodiazepines Scrn (NotDetected) Urine Cocaine Screen (NotDetected) U Marijuana (THC) Screen (NotDetected) Serum Alcohol mg/dL Influenza Type A (PCR) Not Detected (Not Detectd) Influenza Type B (PCR) Not Detected (Not Detectd) RSV (PCR) Not Detected (Not Detectd) SARS-CoV-2 (PCR) Not Detected (Not Detectd) Disposition Clinical Impression: Generalized seizure Disposition: ADMITTED IP TO THIS [facility] Instructions (If sedation given, give patient instructions): Seizure/Epilepsy Discharge Instructions & Follow-Up Referrals: Guille Mcdonald MD [Primary Care Provider] - 1-2 days Time of Disposition: 12:00
[2023-05-20 10:41] LABS: Basophils # (A) 0.1 k/uL (0-0.2); Basophils % (A) 1 %; Eosinophils # (A) 0.3 k/uL (0-0.7); Eosinophils % (A) 2 %; HCT 51.1 % (39.0-53.0); HGB 18.1 gm/dL (13.0-17.5); Lymphocytes % (A) 8 %; MCH 31.1 pg (25.0-35.0); MCHC 35.4 g/dL (31.0-37.0); MCV 87.8 fL (80.0-100.0); Mean Platelet Volume 7.2; Monocytes # (A) 0.3 k/uL (0-1.0); Monocytes % (A) 2 %; Neutrophils # (A) 11.4 k/uL (1.3-7.7); Neutrophils % (A) 87 %; Platelet Count 330 k/uL (150-450); RBC 5.83 m/uL (4.30-5.90); RDW 12.8 % (11.5-15.5); WBC 13.1 k/uL (3.8-10.6)
[2023-05-20 11:06] LABS: Amphetamine Screen,Urine Not Detected (NotDetected); Barbiturate Screen,Urine Not Detected (NotDetected); Benzodiazepines Screen,Urine Not Detected (NotDetected); Cocaine Screen,Urine Not Detected (NotDetected); Methadone Screen, Urine Not Detected (NotDetected); Opiate Screen,Urine Not Detected (NotDetected); Oxycodone Screen, Urine Not Detected (NotDetected); Phencyclidine Screen,Urine Not Detected (NotDetected); Tricyclic Antidepressant,Urine Not Detected (NotDetected); Urn Cannabinoid Scrn Detected (NotDetected)
[2023-05-20 11:11] LABS: ALT 30 U/L (4-49); AST 39 U/L (17-59); African American GFR (CKD) >90 (>60 ml/min/1.73 sqM); Albumin 4.9 g/dL (3.5-5.0); Alcohol <10 mg/dL; Alkaline Phosphatase 101 U/L (38-126); Anion Gap 16 mmol/L; Blood Urea Nitrogen 13 mg/dL (9-20); Calcium 9.2 mg/dL (8.4-10.2); Carbon Dioxide 16 mmol/L (22-30); Chloride 106 mmol/L (98-107); Glucose 183 mg/dL (74-99); Magnesium 2.1 mg/dL (1.6-2.3); Non-African American GFR(CKD) >90 (>60 ml/min/1.73 sqM); Potassium 4.6 mmol/L (3.5-5.1); Sodium 138 mmol/L (137-145); Total Bilirubin 0.5 mg/dL (0.2-1.3); Total Protein 7.9 g/dL (6.3-8.2)
--- NOTE | 2023-05-20 11:21 | CT ---
EXAMINATION TYPE: CT brain wo con DATE OF EXAM: 05/20/2023 COMPARISON: None HISTORY: 22-year-old male Seizure TECHNIQUE: Examination was done in axial plane without intravenous contrast. Coronal and sagittal r econstructions performed. CT DLP: 1138.4 mGycm Automated exposure control for dose reduction was used. FINDINGS: There is no evidence of acute intracranial hemorrhage, acute ischemic changes, mass, mass-effect, or extra-axial fluid collection. There is no effacement of cerebral sulci or basal subarachnoid cister ns. There is no hydrocephalus. There is no midline shift. Garcia-white matter distinction is preserv ed. Prominent appearance to the blood pool may be seen with dehydration. Trace mucosal thickening right maxillary sinus. Mastoid air cells are well pneumatized. IMPRESSION: No acute intracranial abnormality seen. Slightly prominent density in the blood pool which may be see n with dehydration. Clinically correlate.
--- NOTE | 2023-05-20 11:23 | XR ---
EXAMINATION TYPE: XR chest 2V DATE OF EXAM: 05/20/2023 COMPARISON: 11/29/2021 HISTORY: 22 year-old male shortness of breath, difficulty breathing TECHNIQUE: AP and lateral views FINDINGS: The cardiomediastinal silhouette, aorta, and pulmonary vasculature are within normal limits. Lungs an d pleural spaces are clear. IMPRESSION: No acute cardiopulmonary process.
[2023-05-20] MEDS: SODIUM CHLORIDE 0.9% 1,000 ML IV ONE (12:40)
--- NOTE | 2023-05-20 13:06 | P.HPIM ---
History of Present Illness H&P Date: 05/20/23 History of Presenting Illness: Patient is a pleasant 22-year-old male with a past medical history of previous seizure, anxiety, depression, nicotine dependence, and daily cannabinoid use. He presented to the emergency department today via EMS secondary to recurrent seizure activity at home. Patient's family at bedside report patient patient had a seizure approximately 2 years ago in which he was told was likely secondary to an accidental overdose of mushrooms versus alcohol withdraw as he was previously binge drinking on weekends. Patient states he has not drank alcohol since March and reports only drug use being marijuana. Patient is on Effexor 150 mg daily and his parents at bedside state he takes daily as instructed and has not missed any doses. 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 Family at bedside report today patient woke up smoked his cannabis vape pen and began having a seizure with loss of consciousness and tonic-clonic jerking motions of his entire body. They report this lasted less than 2 minutes and resolved but report an hour later patient had a second seizure lasting approximately 1 minute followed by a third seizure 15 minutes later. Patient bit his left lateral tongue during one of these events. Patient reports he remembers waking up this morning and smoking his vape pen but remembers nothing further throughout the day other than waking up in the hospital. Patient does report having a headache but denies having any changes in vision, hearing, chest pain, palpitations, nausea, vomiting, or experiencing any numbness/tingling/weakness in his extremities. Patient denies loss of bowel or bladder during these witnessed seizure events. Patient underwent full evaluation in the emergency department. Vital signs upon arrival show blood pressure 136/81, heart rate 110, respiratory rate 18, temp 98.4 F, and SpO2 of 94% on room air. EKG completed showing sinus tachycardia at 109 bpm. Labs completed and reviewed. CBC showing leukocytosis with WBC count of 13.1 and polycythemia with hemoglobin of 18.1. BMP showing mild hypocarbia with bicarb of 16 and elevated anion gap of 16 otherwise normal findings. Blood glucose was 183. Liver profile unremarkable. Urine drug screen positive for marijuana. Serum alcohol negative at less than 10. Influenza A influenza B, RSV, and COVID PCR negative. CT head negative for acute intracranial abnormality showing slightly prominent density in the blood pool which may be seen with dehydration. Patient admitted under our services with consultation to neurology. Review of systems: Pertinent positives and negatives as discussed in HPI, a complete review of systems was performed and all other systems are negative. Physical exam: Vital signs reviewed and stable. General: Nontoxic, no distress and appears stated age. Derm: Skin warm and dry, normal coloration for ethnicity. Head: Atraumatic, normocephalic and symmetric. Eyes: EOMs intact, no lid lag, and anicteric sclera Mouth: no lip lesions, mucus membranes moist. Patient does have a small wound to left lateral tongue, no active bleeding noted. Cardiovascular: regular rate and rhythm with normal S1S2, no murmur, positive posterior tibial pulses bilaterally, and cap refill < 2 seconds. Lungs: Respirations even, regular, and unlabored on room air. Lungs CTA bilaterally, no rhonchi, no rales, no wheezing, and no accessory muscle usage. Abdominal: soft, nontender to palpation, no guarding, no appreciable organomegaly Ext: ROM intact. No gross muscle atrophy, no edema, no contractures Neuro: Speech clear, face symmetrical and CN II-XII grossly intact with no noted focal neuro deficits Psych: Alert and oriented to person, place, time, and situation. Appropriate and pleasant affect. Assessment and Plan of Care: Recurrent seizure activity Anxiety and depression Daily cannabinoid use Nicotine dependence -Seizure precautions, aspiration precautions, and fall precautions in place. -Neurochecks every 4 hours. -Ativan 1 mg IVP to be administered for active seizure activity. -Neurology consulted, appreciate recommendations. -Patient started on Keppra, given loading dose of Keppra 2000 mg IVPB x 1 dose followed by 750 mg p.o. every 12 hours. -Telemetry monitoring -EEG to be completed -MRI brain with and without contrast was ordered by neurologist. -Urine drug screen negative with exception of marijuana. Alcohol less than 10. -Patient informed of [place] state law stating no driving until seizure free for 6 months. Patient also instructed to avoid climbing ladders, operating dangerous or heavy machinery or unsupervised swimming until seizure free for 6 months. -Continue Effexor 150 mg daily. -Nicotine patch. Recommends cessation of smoking cigarettes and cannabinoid use. Data and imaging reviewed: As stated above in HPI. CODE STATUS: Full code DVT prophylaxis: Lovenox Anticipated discharge date: 24 to [address]: Clinical course to determine Patient was seen independently by Nurse Practitioner. This document was prepared using [employer] dictation software. Please allow for errors in endoscopy technician while rare they do occur. Karlos Avelar NP rendered care for this patient independently, reviewed the findings and plan as documented in the note above. I did not physically speak with or examine the patient on this date. Past Medical History Past Medical History: No Reported History Additional Past Medical History / Comment(s): asthma as kid History of Any Multi-Drug Resistant Organisms: None Reported Past Surgical History: No Surgical Hx Reported Past Psychological History: Anxiety, Depression Smoking Status: Current every day smoker Past Alcohol Use History: None Reported Past Drug Use History: None Reported Additional Drug Use History / Comment(s): Pt. reports vaping and useing marijuana everyday. Medications and Allergies Home Medications Medication Instructions Recorded Confirmed Type Albuterol Inhaler [Ventolin Hfa 2 puff INHALATION RT-Q6H PRN 05/20/23 05/20/23 History Inhaler] Budesonide/Glycopyr/Formoterol 2 puff INHALATION RT-BID 05/20/23 05/20/23 History [Breztri Aerosphere Inhaler] Venlafaxine HCl [Effexor XR] 150 mg PO DAILY 05/20/23 05/20/23 History Allergies Allergy/AdvReac Type Severity Reaction Status Date / Time No Known Allergies Allergy Verified 05/20/23 10:26 Physical Exam Osteopathic Statement: *. No significant issues noted on an osteopathic structural exam other than those noted in the History and Physical/Consult. Vitals: Vital Signs Temp Pulse Resp BP Pulse Ox 05/20/23 12:57 113 H 18 125/95 96 05/20/23 11:26 105 H 18 123/98 96 05/20/23 10:18 98.4 F 110 H 18 136/81 94 L Intake and Output 05/19/23 05/20/23 05/20/23 22:59 06:59 14:59 Other: Weight 104.326 kg Results CBC & Chem 7: 05/20/23 10:16 05/20/23 10:16 Labs: Abnormal Lab Results - Last 24 Hours (Table) 05/20/23 05/20/23 05/20/23 Range/Units 10:16 10:16 10:16 WBC 13.1 H (3.8-10.6) k/uL Hgb 18.1 H (13.0-17.5) gm/dL Neutrophils # 11.4 H (1.3-7.7) k/uL Carbon Dioxide 16 L (22-30) mmol/L Glucose 183 H (74-99) mg/dL U Marijuana (THC) Screen Detected H (NotDetected)
[2023-05-20] MEDS ORDERED: ALBUTEROL NEBULIZED 2.5 MG/3 ML INHALATION PRN (13:07)
[2023-05-20] MEDS ORDERED: LORazepam 2 MG/ML INJ IV PRN (13:25)
--- NOTE | 2023-05-20 13:27 | P.CNNES ---
History of Present Illness Consult date: 05/20/23 Reason for Consult: Seizure History of Present Illness: The patient is a 22-year-old male who was seen in neurologic consultation on May 20, 2023, in collaboration with Tamiko Whiteside, via teleneurology. History is obtained from the patient's family, for present at the bedside. Patient was seen in the emergency department. According to the patient's father, the patient woke up this morning feeling fine. He reportedly uses marijuana vape pen and almost immediately had a seizure. Patient reportedly had generalized shaking of both arms and legs. There was no reported loss of bowel and bladder control. Approximately 1 hour later, the patient uses marijuana vape pen again and had another seizure. The seizure was followed approximately 15 minutes later, by a third seizure. According to the family, the patient had 1 seizure last month and there is seizure approximately 2 years ago. 2 years ago, the patient was reportedly worked up at [facility]. The workup at that time was thought that this seizure was provoked by an overdose of "mushrooms". Other seizures which have occurred earlier this year, have not been brought to the attention of the emergency department with the patient's doctor. Family thought that perhaps his seizures were secondary to his antidepressant medication (Effexor). Oor secondary to alcoholic, binge drinking, on the weekend. The patient reportedly has stopped drinking alcohol. The patient himself does not recall the events of this morning. He does not recall EMS being at his home. He does not recall the ride in the ambulance to the hospital. The patient currently is complaining of a headache. He denies numbness tingling and weakness in his extremities. He denies pain in his extremities. The patient actually denies pain in his tongue although there is noted to be a small bite on the left lateral aspect of the tongue. Patient reports his headache to be a 6 on a scale of 0-10. He describes a right sided headache with stabbing on the top of his head. There is no associated nausea or vomiting. CT scan of the brain was performed in the emergency department. There is no reported evidence of acute hemorrhage or infarct. Past Medical History Past Medical History: No Reported History Additional Past Medical History / Comment(s): asthma as kid History of Any Multi-Drug Resistant Organisms: None Reported Past Surgical History: No Surgical Hx Reported Past Psychological History: Anxiety, Depression Smoking Status: Current every day smoker Past Alcohol Use History: None Reported Past Drug Use History: None Reported Additional Drug Use History / Comment(s): Pt. reports vaping and useing marijuana everyday. Medications and Allergies Home Medications Medication Instructions Recorded Confirmed Type Albuterol Inhaler [Ventolin Hfa 2 puff INHALATION RT-Q6H PRN 05/20/23 05/20/23 History Inhaler] Budesonide/Glycopyr/Formoterol 2 puff INHALATION RT-BID 05/20/23 05/20/23 History [Breztri Aerosphere Inhaler] Venlafaxine HCl [Effexor XR] 150 mg PO DAILY 05/20/23 05/20/23 History Allergies Allergy/AdvReac Type Severity Reaction Status Date / Time No Known Allergies Allergy Verified 05/20/23 10:26 Physical Examination - Vital Signs Vital Signs: Vital Signs Temp Pulse Resp BP Pulse Ox 05/20/23 11:26 105 H 18 123/98 96 05/20/23 10:18 98.4 F 110 H 18 136/81 94 L Intake and Output 05/19/23 05/20/23 05/20/23 22:59 06:59 14:59 Other: Weight 104.326 kg General: The patient is reclining in the bed. He is well-nourished, well- developed and in no acute distress. HEENT: Head is atraumatic, normocephalic. Fundus not visualized. There is no scleral icterus. Mucous membranes are moist. Neck: Supple without carotid bruits Heart: Regular rate and rhythm Lungs: No wheezing or coughing Extremities: Without edema Neurological examination Mental status: The patient is awake, alert and oriented x 3. His speech is clear. There is no dysarthria or aphasia. Cranial nerves: Pupils are equal at 4 mm and reactive. Visual khan are full to confrontation. Extraocular movements are intact. Facial sensation is intact. There is no facial asymmetry. Hearing is grossly intact. Uvula and palate are midline. Shoulder shrug is symmetric. Tongue protrudes midline, with evidence of bite. Motor: Strength is 5/5 throughout. Sensation: Grossly intact to light touch throughout. There is no extinction with double simultaneous stimulation. Coordination: Gmvljm-dy-[id number], rapid alternating movements and njzn-gx-rrbh testing are intact. There is no pronator drift. Deep tendon reflexes: 2+/4+ throughout. Plantar responses are flexor bilaterally. Gait: Not assessed Results - Laboratory Findings CBC and BMP: 05/20/23 10:16 05/20/23 10:16 Abnormal Lab Findings: Abnormal Labs 05/20/23 05/20/23 05/20/23 10:16 10:16 10:16 WBC 13.1 H Hgb 18.1 H Neutrophils # 11.4 H Carbon Dioxide 16 L Glucose 183 H U Marijuana (THC) Screen Detected H - Diagnostic Findings Comments: CT scan of the brain images are personally reviewed Assessment and Plan Assessment: 1. Recurrent, breakthrough seizures a 22-year-old male with a history of previous seizures thought to be secondary to drug overdose and/or medication effect 2. Reported history of depression/anxiety 3. Marijuana abuse 4. Tobacco abuse Plan: 1. Loading dose of Keppra has been ordered to be given IV push, stat 2. Keppra maintenance dosing of 750 mg p.o. twice daily 3. Urgent EEG has been ordered 4. MRI of the brain with and without gadolinium has been ordered to further evaluate for etiology of seizure 5. Seizure precautions 6. IV Ativan 1 mg as needed breakthrough seizure Time with Patient: Greater than 30 (55 minutes were spent caring for this pat ient today including, obtaining history, examining the patient, reviewing imaging, chart documentation, labs, placing orders and creating this note)
[2023-05-20] MEDS: levETIRAcetam IV 2,000 MG in SODIUM CHLORIDE 0.9% 250 ML IVPB ONE (13:31)
[2023-05-20] MEDS: diphenhydrAMINE 50 MG/ML 1 ML VIAL IVP STA (14:47)
[2023-05-20] MEDS: KETOROLAC 15 MG/ML 1 ML VIAL IVP STA (14:48)
[2023-05-20] MEDS: PROCHLORPERAZINE INJ 10 MG/2 ML VIAL IVP STA (14:50)
[2023-05-20] MEDS: IPRATROPIUM 0.5 MG/2.5 ML NEBU INHALATION SCH (16:24)
[2023-05-20] MEDS: levETIRAcetam 250 MG TAB PO SCH (19:59)
[2023-05-20] MEDS: SYMBICORT 160-4.5 MCG INHALER INHALATION SCH (20:09)
[2023-05-21] MEDS: NICOTINE 21MG/24HR PATCH TRANSDERM SCH (03:29)
[2023-05-21] MEDS: ENOXAPARIN 40 MG/0.4 ML SYRINGE SQ SCH (09:32)
[2023-05-21] MEDS ORDERED: BENZOCAINE 20 % GEL 11.9 GM TUBE MM PRN (09:32)
[2023-05-21] MEDS: VENLAFAXINE HCL ER 150 MG CAP PO SCH (09:32)
--- NOTE | 2023-05-21 09:37 | P.PN ---
Subjective Progress Note Date: 05/21/23 Hospital Course: Patient is a pleasant 22-year-old male with a past medical history of previous seizure, anxiety, depression, nicotine dependence, and daily cannabinoid use. He presented to the emergency department today via EMS secondary to recurrent seizure activity at home. Patient's family at bedside report patient patient had a seizure approximately 2 years ago in which he was told was likely secondary to an accidental overdose of mushrooms versus alcohol withdraw as he was previously binge drinking on weekends. Patient states he has not drank alcohol since March and reports only drug use being marijuana. Patient is on Effexor 150 mg daily and his parents at bedside state he takes daily as instructed and has not missed any doses. 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 Family at bedside report today patient woke up smoked his cannabis vape pen and began having a seizure with loss of consciousness and tonic-clonic jerking motions of his entire body. They report this lasted less than 2 minutes and resolved but report an hour later patient had a second seizure lasting approximately 1 minute followed by a third seizure 15 minutes later. Patient bit his left lateral tongue during one of these events. Patient reports he remembers waking up this morning and smoking his vape pen but remembers nothing further throughout the day other than waking up in the hospital. Patient does report having a headache but denies having any changes in vision, hearing, chest pain, palpitations, nausea, vomiting, or experiencing any numbness/tingling/weakness in his extremities. Patient denies loss of bowel or bladder during these witnessed seizure events. Patient underwent full evaluation in the emergency department. Vital signs upon arrival show blood pressure 136/81, heart rate 110, respiratory rate 18, temp 98.4 F, and SpO2 of 94% on room air. EKG completed showing sinus tachycardia at 109 bpm. Labs completed and reviewed. CBC showing leukocytosis with WBC count of 13.1 and polycythemia with hemoglobin of 18.1. BMP showing mild hypocarbia with bicarb of 16 and elevated anion gap of 16 otherwise normal findings. Blood glucose was 183. Liver profile unremarkable. Urine drug screen positive for marijuana. Serum alcohol negative at less than 10. Influenza A influenza B, RSV, and COVID PCR negative. CT head negative for acute intracranial abnormality showing slightly prominent density in the blood pool which may be seen with dehydration. Patient admitted under our services with consultation to neurology. Physical exam: Patient seen and fully evaluated at bedside. He reports feeling well this morning. He denies having any dizziness, lightheadedness, headache, chest pain, palpitations, or experiencing any numbness/tingling/weakness/numbness in his extremities. Patient reports pain to his left lateral tongue where he bit it during one of his seizure episodes yesterday. No active bleeding or swelling noted. Patient denies having any other complaints or needs at this time. Family visiting at bedside. Patient awaiting for MRI. Vital signs reviewed and stable. General: Nontoxic, no distress and appears stated age. Derm: Skin warm and dry, normal coloration for ethnicity. Head: Atraumatic, normocephalic and symmetric. Eyes: EOMs intact, no lid lag, and anicteric sclera Mouth: no lip lesions, mucus membranes moist. Patient does have a small wound to left lateral tongue, no active bleeding noted. Cardiovascular: regular rate and rhythm with normal S1S2, no murmur, positive posterior tibial pulses bilaterally, and cap refill < 2 seconds. Lungs: Respirations even, regular, and unlabored on room air. Lungs CTA bilaterally, no rhonchi, no rales, no wheezing, and no accessory muscle usage. Abdominal: soft, nontender to palpation, no guarding, no appreciable organomegaly Ext: ROM intact. No gross muscle atrophy, no edema, no contractures Neuro: Speech clear, face symmetrical and CN II-XII grossly intact with no noted focal neuro deficits Psych: Alert and oriented to person, place, time, and situation. Appropriate and pleasant affect. Assessment and Plan of Care: Recurrent seizure activity Anxiety and depression Daily cannabinoid use Nicotine dependence -Seizure precautions, aspiration precautions, and fall precautions in place. -Neurochecks every 4 hours. -Ativan 1 mg IVP to be administered for active seizure activity. -Neurology consulted, reviewed documentation in chart. -Patient started on Keppra, given loading dose of Keppra 2000 mg IVPB x 1 dose followed by 750 mg p.o. every 12 hours. -Continue telemetry monitoring -EEG completed and pending results -MRI brain with and without contrast was ordered by neurologist. -Urine drug screen negative with exception of marijuana. Alcohol less than 10. -Patient informed of [place] state law stating no driving until seizure free for 6 months. Patient also instructed to avoid climbing ladders, operating dangerous or heavy machinery or unsupervised swimming until seizure free for 6 months. -Continue Effexor 150 mg daily. -Nicotine patch. Recommends cessation of smoking cigarettes and cannabinoid use. -Order placed for Orajel every 4 hours to be applied for pain to left lateral tongue Data and imaging reviewed: EEG completed, pending results Vital signs reviewed. Blood pressure 104/63, heart rate 88, respiratory rate 16, temp 99.2 F, and SpO2 of 97% on room air. CODE STATUS: Full code DVT prophylaxis: Lovenox Anticipated discharge date: Likely tomorrow, awaiting completion of MRI. Anticipated discharge place: Clinical course to determine Patient was seen independently by Nurse Practitioner. This document was prepared using [employer] dictation software. Please allow for errors in teradata developer while rare they do occur. Karlos Avelar NP rendered care for this patient independently, reviewed the fin dings and plan as documented in the note above. I did not physically speak with or examine the patient on this date. Objective - Vital Signs Vital signs: Vital Signs Temp 99.2 F 05/21/23 07:00 Pulse 88 05/21/23 07:00 Resp 16 05/21/23 07:00 BP 104/63 05/21/23 07:00 Pulse Ox 97 05/21/23 07:00 FiO2 Intake & Output 05/20/23 05/21/23 05/21/23 17:59 06:59 18:59 Weight Other: Voiding Method # Voids - Labs CBC & Chem 7: 05/20/23 10:16 05/20/23 10:16 Labs: Abnormal Lab Results - Last 24 Hours (Table) 05/20/23 05/20/23 05/20/23 Range/Units 10:16 10:16 10:16 WBC 13.1 H (3.8-10.6) k/uL Hgb 18.1 H (13.0-17.5) gm/dL Neutrophils # 11.4 H (1.3-7.7) k/uL Carbon Dioxide 16 L (22-30) mmol/L Glucose 183 H (74-99) mg/dL U Marijuana (THC) Screen Detected H (NotDetected)
--- NOTE | 2023-05-21 14:17 | P.PN ---
Subjective Progress Note Date: 05/21/23 The patient is a 22-year-old male who was seen in neurologic follow-up on May 21, 2023, in collaboration with Tamiko Whiteside, via teleneurology. The patient reports feeling fine today. He does report soreness of his tongue. He denies headache, muscle soreness, vision changes, difficulty with balance and weakness. The patient and the nurse deny further seizures. The patient denies the use of any other drugs and the use of alcohol. He states that his previous seizure, approximately 2 years ago was related to what was thought to be an overdose of cocaine. It is reported in the records that was thought to be an overdose of mushrooms. The patient reports that his mother thought that was the case. The patient advises that he was using 3.5 g of cocaine every other night, at that time. He denies the use of cocaine at this time. He states that he uses his marijuana vape pen several times per day. He says "it is just my thing". In reviewing the events of yesterday, the patient reportedly used his vape pen, before he even got out of bed in the morning. The patient's girlfriend agrees with this. She says that patient then had a seizure. He was okay for a while and then about an hour later, the patient used his vape pen again and had another seizure. The seizure was quickly followed by a third seizure. The patient himself does not recall any of the events of yesterday. The patient states that he has not used his marijuana vape pen, since being admitted to the hospital. Objective - Vital Signs Vital signs: Vital Signs Temp 99.2 F 05/21/23 07:00 Pulse 104 H 05/21/23 09:27 Resp 16 05/21/23 07:00 BP 104/63 05/21/23 07:00 Pulse Ox 97 05/21/23 07:00 FiO2 Intake & Output 05/20/23 05/21/23 05/21/23 17:59 06:59 18:59 Weight Other: Voiding Method # Voids - Exam General: The patient is reclining in the bed. He is well-nourished, well- developed and in no acute distress. HEENT: Head is atraumatic, normocephalic. Fundus not visualized. There is no scleral icterus. Mucous membranes are moist. Extremities: Without edema Neurological examination Mental status: The patient is awake, alert and oriented x 3. His speech is clear. There is no dysarthria or aphasia. Cranial nerves: Pupils are equal at 3 mm and reactive. Visual khan are full to confrontation. Extraocular movements are intact. Facial sensation is intact. There is no facial asymmetry. Hearing is grossly intact. Uvula and palate are midline. Shoulder shrug is symmetric. Tongue protrudes midline, with evidence of bite. Motor: Strength is 5/5 throughout. Coordination: Nzkfac-qo-whnk, rapid alternating movements and gvgw-tn-cnfb testing are intact. There is no pronator drift. Gait: Steady, without ataxia - Labs CBC & Chem 7: 05/20/23 10:16 05/20/23 10:16 Labs: Abnormal Lab Results - Last 24 Hours (Table) 05/20/23 05/20/23 05/20/23 Range/Units 10:16 10:16 10:16 WBC 13.1 H (3.8-10.6) k/uL Hgb 18.1 H (13.0-17.5) gm/dL Neutrophils # 11.4 H (1.3-7.7) k/uL Carbon Dioxide 16 L (22-30) mmol/L Glucose 183 H (74-99) mg/dL U Marijuana (THC) Screen Detected H (NotDetected) Assessment and Plan Assessment: 1. Recurrent, breakthrough seizures a 22-year-old male with a history of previous seizures thought to be secondary to drug overdose and/or medication effect. EEG was completed and interpreted. Per epileptologist, EEG was negative for epileptiform activity. It revealed bilateral frontal slowing, consistent with medication effect or postictal state. 2. Reported history of depression/anxiety 3. Marijuana abuse Plan: 1. Loading dose of Keppra has been ordered to be given IV push, stat 2. Keppra maintenance dosing of 750 mg p.o. twice daily 3. Urgent EEG has been ordered and completed. There was no evidence of epileptiform activity 4. MRI of the brain with and without gadolinium has been ordered to further evaluate for etiology of seizure 5. Seizure precautions 6. IV Ativan 1 mg as needed breakthrough seizure 7. The patient has been advised to discontinue the use of his marijuana vape p en, as there seems to be a strong correlation between the use of the marijuana and his seizures 8. The patient is advised of [place] law regarding no driving for 6 months following a seizure. Other seizure precautions such as no swimming alone, climbing on ladders, climbing on roofs and the use of heavy machinery were also discussed with the patient and his girlfriend. 9. The patient is advised-no, after he asks "do I get disability with my seizures". 10. Dr. Galvez will assume neurologic coverage of this patient as of May 22, 2023 Time with Patient: Greater than 30 (40 minutes were spent caring for this patient today including, obtaining a history, examining the patient, reviewing chart documentation, labs, advising the patient and creating this note)
[2023-05-22 08:34] LABS: HCT 45.4 % (39.6-50.0); HGB 15.3 g/dL (13.0-17.0); MCH 28.9 pg (27.0-32.0); MCHC 33.7 g/dL (32.0-37.0); MCV 85.8 FL (80.0-97.0); Mean Platelet Volume 8.8 FL (9.5-12.2); NRBC Per 100 WBC 0 X 10*3/uL (0.00-0.01); Platelet Count 281 X 10*3/uL (140-440); RBC 5.29 X 10*6/uL (4.40-5.60); RDW 12.4 % (11.5-14.5); WBC 7.26 X 10*3/uL (4.50-10.00)
[2023-05-22 08:44] LABS: ALT 31 U/L (10-49); AST 44 U/L (14-35); Albumin 4.3 g/dL (3.8-4.9); Albumin/Globulin Ratio 1.72 Ratio (1.60-3.17); Alkaline Phosphatase 85 U/L (41-126); Blood Urea Nitrogen 15.2 mg/dL (9.0-27.0); Calcium 9.5 mg/dL (8.7-10.3); Carbon Dioxide 24.5 mmol/L (21.6-31.8); Chloride 104 mmol/L (96-109); Globulin 2.5 g/dL (1.6-3.3); Glucose 107 mg/dL (70-110); Magnesium 2.2 mg/dL (1.5-2.4); Potassium 4.6 mmol/L (3.5-5.5); Sodium 139 mmol/L (135-145); Total Bilirubin 0.4 mg/dL (0.3-1.2); Total Protein 6.8 g/dL (6.2-8.2)
[2023-05-22 09:25] VITALS: TEMP 97.8
--- NOTE | 2023-05-22 13:25 | MR ---
EXAMINATION TYPE: MR brain wo/w con DATE OF EXAM: 05/22/2023 11:02 AM CLINICAL INDICATION:Male, 22 years old with history of seizure; PHH, Seizures. COMPARISON: CT 05/20/2023 TECHNIQUE: Multi planar, multi sequence imaging was performed through the brain including: T1, T2, In version recovery, susceptibility weighted imaging and gradient echo imaging and Diffusion weighted im aging. The patient was then given intravenous contrast and multi planar, T1 fat-saturation images wer e obtained. IV Contrast: 10 cc Gadavist FINDINGS: Motion limited exam. The barron-white junctions, ventricular system, basal cisterns appear unremarkable. Diffusion-weighted imaging shows no evidence of restricted diffusion to suggest acute/subacute infarct. Intracranial ar terial flow voids are maintained. Midline structures show no abnormality. The susceptibility weighted images do not reveal any evidence for micro-hemorrhage. After administration of gadolinium, no abnor mal enhancement is seen. The bone marrow signal is within normal limits. Paranasal sinuses and mastoid air cells: No significant paranasal sinus disease. Visualized orbits: Orbital contents are intact. IMPRESSION: No evidence of intracranial mass, acute/subacute infarct, or abnormal enhancement.
--- NOTE | 2023-05-22 14:11 | P.PN ---
Subjective Progress Note Date: 05/22/23 I'm seeing the patient for the for some during this hospital visit. Please refer to Dr. Aaron's note for further details. Patient is accompanied with his father who helps with some of the history. It seems the patient has been having seizures since December 2021 and initially seemed to the patient was notified that those were pseudoseizure due to drug use. Patient stated that he stopped drinking alcohol since 03/13/2023 and stopped using cocaine or ecstasy. But he still uses marijuana from the same at dispensary. Seems the patient had 3 seizures this past Monday and he is not aware of them. Per the father he was rigid with the upper extremity shaken but mostly rigid and the episodes resting minutes. Patient stated in the past with the seizures he did have urinary incontinence and the tongue bite. Patient had an EEG during his hospital visits there is no evidence of epileptiform activity. He had MRI the brain earlier in the morning and pending impression. He is on Keppra 750 twice a day during his hospital visit. He was not any seizure medication prior to that. Objective - Vital Signs Vital signs: Vital Signs Temp 97.8 F 05/22/23 08:00 Pulse 64 05/22/23 08:00 Resp 16 05/22/23 08:00 BP 119/72 05/22/23 08:00 Pulse Ox 98 05/22/23 08:00 FiO2 Intake & Output 05/21/23 05/22/23 05/22/23 18:59 06:59 18:59 Intake Total 590 Balance 590 Intake: Oral 590 Other: Voiding Method Toilet Toilet # Voids 3 3 - Exam GENERAL: The patient is lying in bed and is not in acute distress. NEUROLOGICAL: Higher mental function: The patient is awake, alert, oriented to self, place and time. Patient is following commands. No aphasia and no neglect. Cranial nerves: The pupils are round, equal and reactive to light and accommodation. Visual khan are full to confrontation throughout. Extraocular movement is intact no nystagmus is noted. Facial sensation is normal to touch throughout. The facial strength is normal throughout. Hearing is normal bilaterally to hand rub. Tongue is midline and moved [id number]-[id number] without any difficulty. No dysarthria is noted. Shoulder shrug is normal bilaterally. Motor: The strength is 5 over 5 throughout. Normal tone and bulk. Cerebellum: Normal finger to nose bilaterally. Sensation: Sensation is normal to touch throughout. - Labs CBC & Chem 7: 05/22/23 06:22 05/22/23 06:22 Labs: Abnormal Lab Results - Last 24 Hours (Table) 05/22/23 05/22/23 Range/Units 06:22 06:22 MPV 8.8 L (9.5-12.2) FL AST 44 H (14-35) U/L Assessment and Plan Assessment: This is a 22-year-old gentleman with history of seizure in the past felt to drug overdose who presents because of breakthrough seizure. According to father this past Monday he had multiple 3 seizures and their back to back. He has not been drinking alcohol since 04/02/2023 and has stopped cocaine ecstasy for at least one year Breakthrough seizure: Cannot rule out truly epileptic in nature vs drug effect. EEG was negative for epileptiform activity. It revealed bilateral frontal slowing, consistent with medication effect or postictal state. History of seizures and the past was felt pseudoseizure due to a drug overdose Reported history of depression/anxiety History of polysubstance abuse. Patient stated that he has not been drinking since 2023. He has stopped using cocaine and ecstasy for more than a year Marijuana abuse Plan: MRI the brain is ordered and the impression that is pending. I personally reviewed the MRI and I felt was unremarkable but will wait for the official report Patient is placed on Keppra 750 mg twice a day by Dr. Aaron. I notified the side effects of the medication to the patient and his father on He's on precaution seizure pads Recommend a repeat EEG as an outpatient and can consider routine vs prolonged. I highly so the patient to continue avoiding any further polysubstance. Because of his seizure per the [place] DMV, to avoid driving for 6 month until seizure-free, avoid heights, avoid swimming unassisted or using heavy machinery. We'll defer the rest of the medical metastases with the primary team Recommend the patient to follow-up with a neurologist as an outpatient within 1- 2 weeks MRI the brain is unremarkable that no further neurologic workup is need. The plan is discussed with patient, his father and primary team. Time with Patient: Less than 30
--- NOTE | 2023-05-22 15:33 | P.DS ---
Providers Date of admission: 05/20/23 12:02 Expected date of discharge: 05/22/23 Attending physician: Cindi Ashton DO Consults: 05/20/23 12:01 Consult Physician Urgent Consulting Provider: Sandra Aaron Consult Reason/Comments: Seizure Do you want consulting provider notified?: Yes [facility] Course: Discharge Diagnosis: Recurrent seizure activity. MRI brain negative for acute process. Patient started on Keppra and discharged home on Keppra 750 mg p.o. twice daily. Patient will need to follow-up outpatient with PCP and neurologist. He was educated on [place] state law stating no driving until seizure-free for 6 months. Patient also recommended to stop use of marijuana pen and/or any other cannabis products as there seems to be a strong correlation between the use of his marijuana pen and his recurrent seizure activity. Anxiety and depression. Continue Effexor 150 mg daily. Daily cannabinoid use. Recommended stopping use of marijuana pen and/or any other cannabis use as there seems to be a strong correlation between the use of marijuana pen and pt's recurrent seizures. Nicotine dependence. Recommend smoking cessation. Hospital Course: Patient is a pleasant 22-year-old male with a past medical history of previous seizure, anxiety, depression, nicotine dependence, and daily cannabinoid use. He presented to the emergency department today via EMS secondary to recurrent seizure activity at home. Patient's family at bedside report patient patient had a seizure approximately 2 years ago in which he was told was likely secondary to an accidental overdose of mushrooms versus alcohol withdraw as he was previously binge drinking on weekends. Patient states he has not drank alcohol since March and reports only drug use being marijuana. Patient is on Effexor 150 mg daily and his parents at bedside state he takes daily as instructed and has not missed any doses. 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 Family at bedside report today patient woke up smoked his cannabis vape pen and began having a seizure with loss of consciousness and tonic-clonic jerking motions of his entire body. They report this lasted less than 2 minutes and resolved but report an hour later patient had a second seizure lasting approximately 1 minute followed by a third seizure 15 minutes later. Patient bit his left lateral tongue during one of these events. Patient reports he remembers waking up this morning and smoking his vape pen but remembers nothing further throughout the day other than waking up in the hospital. Patient does report having a headache but denies having any changes in vision, hearing, chest pain, palpitations, nausea, vomiting, or experiencing any numbness/tingling/weakness in his extremities. Patient denies loss of bowel or bladder during these witnessed seizure events. Patient underwent full evaluation in the emergency department. Vital signs upon arrival show blood pressure 136/81, heart rate 110, respiratory rate 18, temp 98.4 F, and SpO2 of 94% on room air. EKG completed showing sinus tachycardia at 109 bpm. Labs completed and reviewed. CBC showing leukocytosis with WBC count of 13.1 and polycythemia with hemoglobin of 18.1. BMP showing mild hypocarbia with bicarb of 16 and elevated anion gap of 16 otherwise normal findings. Blood glucose was 183. Liver profile unremarkable. Urine drug screen positive for marijuana. Serum alcohol negative at less than 10. Influenza A influenza B, RSV, and COVID PCR negative. CT head negative for acute intracranial abnormality showing slightly prominent density in the blood pool which may be seen with dehydration. Patient admitted under our services with consultation to neurology. Patient was started on Keppra loading dose followed by Keppra 750 mg twice daily. He was evaluated by neurologist. EEG completed negative for epileptiform activity. Patient had no further episodes of seizure activity since admission. MRI brain was completed negative for acute intracranial process showing no evidence of intracranial mass, acute/subacute infarct, or abnormal enhancement. Patient c leared from neurology perspective for discharge. Patient is medically stable for discharge at this time. Patient to follow-up with PCP in 1 to 2 days and with neurologist in 1 to 2 weeks. Physical exam.: Vital signs reviewed and stable. General: Nontoxic, no distress and appears stated age. Derm: Skin warm and dry, normal coloration for ethnicity. Head: Atraumatic, normocephalic and symmetric. Eyes: EOMs intact, no lid lag, and anicteric sclera Mouth: no lip lesions, mucus membranes moist. Patient does have a small wound to left lateral tongue, no active bleeding noted. Cardiovascular: regular rate and rhythm with normal S1S2, no murmur, positive posterior tibial pulses bilaterally, and cap refill < 2 seconds. Lungs: Respirations even, regular, and unlabored on room air. Lungs CTA bilaterally, no rhonchi, no rales, no wheezing, and no accessory muscle usage. Abdominal: soft, nontender to palpation, no guarding, no appreciable organomegaly Ext: ROM intact. No gross muscle atrophy, no edema, no contractures Neuro: Speech clear, face symmetrical and CN II-XII grossly intact with no noted focal neuro deficits Psych: Alert and oriented to person, place, time, and situation. Appropriate and pleasant affect. A total of 35 minutes of time were spent preparing this complex discharge summary. Pt was discharged on 05/22/2023 at 3:31 PM. Patient was seen independently by Nurse Practitioner. This document was prepared using [employer] dictation software. Please allow for errors in grain operations manager while rare they do occur. Karlos Avelar NP rendered care for this patient independently, reviewed the findings and plan as documented in the note above. I did not physically speak with or examine the patient on this date. Patient Condition at Discharge: Stable Plan - Discharge Summary Discharge Rx Participant: No New Discharge Prescriptions: New levETIRAcetam [Keppra] 750 mg PO Q12HR 90 Days #180 tab Continue Budesonide/Glycopyr/Formoterol [Breztri Aerosphere Inhaler] 2 puff INHALATION RT-BID Albuterol Inhaler [Ventolin Hfa Inhaler] 2 puff INHALATION RT-Q6H PRN PRN Reason: Shortness Of Breath Venlafaxine HCl [Effexor XR] 150 mg PO DAILY Discharge Medication List Albuterol Inhaler [Ventolin Hfa Inhaler] 2 puff INHALATION RT-Q6H PRN 05/20/23 [History] Budesonide/Glycopyr/Formoterol [Breztri Aerosphere Inhaler] 2 puff INHALATION RT-BID 05/20/23 [History] Venlafaxine HCl [Effexor XR] 150 mg PO DAILY 05/20/23 [History] levETIRAcetam [Keppra] 750 mg PO Q12HR 90 Days #180 tab 05/22/23 [Rx] Follow up Appointment(s)/Referral(s): Guille Mcdonald MD [Primary Care Provider] - 1-2 days Aracelis Lehman MD [REFERRING] - 1 Week Patient Instructions/Handouts: Seizure/Epilepsy Discharge Instructions & Follow-Up, Recurrent Seizures in Adults (DC) Activity/Diet/Wound Care/Special Instructions: Activity: As tolerated. Diet: Resume regular diet Special Instructions: Take all of your medications as directed and remember to keep all of your doctor's appointments and follow-up as needed. [place] state law states no driving until seizure free for 6 months. It is also important to avoid climbing ladders, operating dangerous or heavy machinery or unsupervised swimming until seizure free for 6 months. Recommend stopping use of marijuana pen and/or any other cannabis use as there seems to be a strong correlation between the use of your marijuana pen and your seizures. Thank you for allowing us to participate in your care, it was truly a pleasure having you for our patient!!! Discharge/Stand Alone Forms: Work/School Release Discharge Disposition: HOME SELF-CARE
[2023-05-22 15:48] VITALS: BP 128/77; PULSE 69; RESP 18
--- NOTE | 2023-05-23 22:03 | EEG ---
ELECTROENCEPHALOGRAM REPORT ELECTROENCEPHALOGRAM (EEG): TECHNIQUE: A routine 18-channel EEG was performed with video using the 10/20 international electrode placement system. HISTORY: Three seizures this morning. CURRENT MEDICATIONS: Unknown. STUDY DURATION: 20 minutes. FINDINGS: BACKGROUND: The background activity consists of unsustained 7 to 8 hertz rhythmic waveforms symmetric through both posterior quadrants. ACTIVATION: Hyperventilation: Not performed. Photic stimulation: No driving seen. Sleep: Drowsy. ABNORMALITIES: Occasional frontally predominant delta range slowing was seen. IMPRESSION: Abnormal EEG. No seizures were recorded. No epileptiform activity was present. The occasional frontally predominant delta range slowing mentioned above is not epileptiform in nature. In combination with the slow background, these findings indicate mild diffuse cerebral dysfunction. These findings can also be seen in a postictal state today including partly due to medication effect. Clinical correlation is recommended. These findings were called to the consulting neurologist at 4:30 p.m. on 05/20/2023. PELON / ISAÍAS: [id number] /
== END 2023-05-22 16:26 | disposition home or self-care (01) ==
LOC: EC 10:03 → 6NMEDSUR 12:02
PROVIDERS: ADMIT Internal Medicine; ATTEND Internal Medicine
DX: G40.909 Epilepsy, unspecified, not intractable, without status epilepticus (principal); F32.A Depression, unspecified; F41.9 Anxiety disorder, unspecified; F12.10 Cannabis abuse, uncomplicated; F17.200 Nicotine dependence, unspecified, uncomplicated; Z79.899 Other long term (current) drug therapy; Z11.52 Encounter for screening for COVID-19
CPT/HCPCS: 96361 ×2; 96365; 96372 ×2; 96375; 99285; 36415; 94640 ×4; 95816; 93005; 80053 ×2; 83735 ×2; 85025; 85027; 80306; 80320; 87636; 71046; 70450; 70553; G0378 ×3; J1200; J0780; J1650 ×2; J1953; J1885; A9585